=== PATIENT | male | born 1990 | race Caucasian/White ===

== ENCOUNTER 2019-04-07 18:32 | Emergency (ER) | payer SELFPAY ==
[~2019-04-07] VITALS: Ht 172.7 cm; Wt 80.5 kg
[2019-04-07 19:13] VITALS: BP 144/78
--- NOTE | 2019-04-07 19:19 | NUR ---
md in triage to see pt
--- NOTE | 2019-04-07 19:26 | NUR ---
PT AMBULATED TO BED 10
--- NOTE | 2019-04-07 19:39 | NUR ---
PT C/O LT BICEP HEMATOMA. STATES HE MAY HAVE GOTTEN BIT BY BUG, DENIES TRAUMA TO AREA. PALPABLE BUMP IN MIDDLE OF BICEP. PT STATES BRUISING HAS PROGRESSIVELY GOTTEN WORSE. 5/10 PAIN, PULSATING. RESPIRATIONS EVEN, UNLABORED. SITTING IN BED CALM AND PLEASANT MEDHX: DENIES ALLERGIES: DENIES
--- NOTE | 2019-04-07 20:16 | NUR ---
Patient discharged with v/s stable. Written and verbal after care instructions given and explained. Patient alert, oriented and verbalized understanding of instructions. Ambulatory with to home. All questions addressed prior to discharge. ID band removed. Patient advised to follow up with PMD. Rx of NAPROXEN 500 MG given. Patient educated on indication of medication including possible reaction and side effects. Opportunity to ask questions provided and answered.
[2019-04-07 20:17] VITALS: BP 127/78
== END 2019-04-07 20:16 | disposition home or self-care (01) ==
LOC: EDSEX 18:32 → MED 18:32
DX: S40.022A Contusion of left upper arm, initial encounter (principal); R03.0 Elevated blood-pressure reading, without diagnosis of hypertension; X58.XXXA Exposure to other specified factors, initial encounter; Y93.89 Activity, other specified; Y92.89 Other specified places as the place of occurrence of the external cause; Y99.8 Other external cause status
CPT/HCPCS: 93971; 99284; Q0092